=== PATIENT | female | born 1980 | race Caucasian/White ===

== ENCOUNTER → 2018-01-30 | Outpatient (CLI) | payer OTHER ==
[~2018-01-30] MED LIST: CATAFLAM50 MG PO; CIPRO500 MG PO; NAPROXEN500 MG PO; SILVADENE20 GM TOP; TYLENOL-CODEINE1 TA1 PO
== END | disposition home or self-care (01) ==
LOC: LAB 09:38
DX: I10 Essential (primary) hypertension (principal); E11.9 Type 2 diabetes mellitus without complications; E03.9 Hypothyroidism, unspecified; E78.2 Mixed hyperlipidemia; M19.90 Unspecified osteoarthritis, unspecified site; M81.0 Age-related osteoporosis without current pathological fracture; D68.9 Coagulation defect, unspecified; N39.0 Urinary tract infection, site not specified

== ENCOUNTER 2019-03-14 08:23 | Outpatient (CLI) | payer OTHER | END 2019-03-14 08:27 | disposition home or self-care (01) | LOC: LAB 08:23 | DX: E03.8 Other specified hypothyroidism (principal); E11.9 Type 2 diabetes mellitus without complications; E78.2 Mixed hyperlipidemia; N80.8 Other endometriosis; M81.0 Age-related osteoporosis without current pathological fracture ==

== ENCOUNTER 2019-03-14 09:08 | Outpatient (CLI) | payer OTHER | END 2019-03-14 09:25 | disposition home or self-care (01) | LOC: MAMO-SONO 09:08 | DX: Z12.31 Encounter for screening mammogram for malignant neoplasm of breast (principal); Z87.898 Personal history of other specified conditions; N63.11 Unspecified lump in the right breast, upper outer quadrant ==

== ENCOUNTER 2019-05-09 08:55 | Outpatient (CLI) | payer OTHER | END 2019-05-09 09:03 | disposition home or self-care (01) | LOC: LAB 08:55 | DX: N87.0 Mild cervical dysplasia (principal); N87.1 Moderate cervical dysplasia; Z87.410 Personal history of cervical dysplasia; R87.810 Cervical high risk human papillomavirus (HPV) DNA test positive; R79.1 Abnormal coagulation profile; Z11.3 Encounter for screening for infections with a predominantly sexual mode of transmission; E78.01 Familial hypercholesterolemia ==

== ENCOUNTER 2025-02-19 09:50 | Outpatient (CLI) | payer OTHER | END 2025-02-19 09:59 | disposition home or self-care (01) | LOC: SONOGRAMA 09:50 | PROVIDERS: ATTEND Obstetrics & Gynecology | DX: R22.40 Localized swelling, mass and lump, unspecified lower limb (principal) ==